=== PATIENT | male | born 1940 | race Caucasian/White ===

== ENCOUNTER 2017-07-06 21:01 | Inpatient (IN) ==
[2017-07-06 22:13] LABS: BUN/Creatinine Ratio 14 (6-26); Blood Urea Nitrogen 12 mg/dL (8-26); Calcium 9.2 mg/dL (8.6-10.8); Carbon Dioxide 24 mEq/L (19-29); Chloride 105 mEq/L (98-109); Glucose 120 mg/dL (70-99); Osmolality,Calculated 291 (280-300); Potassium 3.8 mEq/L (3.5-4.5); Sodium 140 mEq/L (136-145); eGFR For African Americans > 60 (> 60); eGFR For Non-African Americans > 60 (> 60)
--- NOTE | 2017-07-06 22:23 | Emergency Department Note ---
Disposition Clinical Impression: Hypertensive urgency CAD (coronary artery disease) Qualifiers: Coronary Disease-Associated Artery/Lesion type: unspecified vessel or lesion type [place] vs. transplanted heart: [place] heart Associated angina: with unspecified angina Qualified Code(s): I25.119 - Atherosclerotic heart disease of [place] coronary artery with unspecified angina pectoris Nausea and vomiting Qualifiers: Vomiting type: unspecified Vomiting Intractability: unspecified Qualified Code( s): R11.2 - Nausea with vomiting, unspecified Disposition: Admitted As Inpatient [facility]Primary Care Provider[facility] - Forms: ED Satisfaction Letter General Adult HPI - General Chief complaint: ED Nausea/Vomiting/Diarrhea Stated complaint: nausea/edema Time Seen by Provider: 07/06/17 21:03 Source: patient, EMS Mode of arrival: EMS Limitations: no limitations Nursing Notes Reviewed: Yes Vital Signs Reviewed: Yes - History of Present Illness HPI Narrative: Patient is a 77-year-old white male with a history of hypertension, coronary artery disease status post remote multivessel CABG, who presents to the ER as a transfer from the [facility] for hypertensive urgency, lower extremity edema, nausea and vomiting. Patient was seen here and admitted for a non-STEMI on June 20 and at that visit had a heart catheterization with decreased EF but no intervention was performed. It was recommended to optimize his medical management at that visit. At time of discharge he had his hydralazine dose decreased to 25 mg from 50 mg and he was discontinued off his diltiazem. He followed up with his [facility] nutrition tech on June 29 where they discontinued his nifedipine and started him on Norvasc. He also received a flu shot that day. Today patient states that last night he noticed bilateral lower extremity swelling that was new for him and was also having nausea and "just not feeling right. Patient has not eaten much in the last 24 hours due to the ongoing nausea. Patient states that at times he feels short of breath especially with exertion but currently denies any chest pain pressure or heaviness. On arrival patient had an episode of vomiting and states this is his second episode of vomiting today. He denies any fevers or chills, no abdominal pain or cramping of any kind. No urinary symptoms or flank pain. Patient also concerned about his blood pressure being elevated as he states he has been taking his medications as prescribed. Pain Scale: 0 - Related Data Home Medications Medication Instructions Recorded Confirmed Cholecalciferol (D-3) [Vitamin D] 1,000 unit PO DAILY 06/21/17 07/06/17 Cilostazol 50 mg PO BID 06/21/17 07/06/17 Gabapentin [Neurontin] 1,200 mg PO TID 06/21/17 07/06/17 LORazepam [Ativan] 0.5 mg PO BID PRN 06/21/17 07/06/17 Latanoprost [Xalatan] 1 drop RIGHT EYE HS 06/21/17 07/06/17 Lisinopril [Zestril] 40 mg PO HS 06/21/17 07/06/17 Terazosin [Hytrin] 1 mg PO HS 06/21/17 07/06/17 metFORMIN [Glucophage] 500 mg PO BID 06/21/17 07/06/17 Amlodipine Besylate 2.5 mg PO DAILY 07/06/17 07/06/17 Aspirin 243 mg PO DAILY 07/06/17 07/06/17 Isosorbide MONOnitrate [Isosorbide 120 mg PO DAILY 07/06/17 07/06/17 Mononitrate ER] Metoprolol Succinate 100 mg PO DAILY 07/06/17 07/06/17 hydrALAZINE [HydrALAZINE] 25 mg PO TID 07/06/17 07/06/17 Previous Rx's Medication Instructions Recorded Atorvastatin [Lipitor] 40 mg PO HS #30 tab 06/24/17 Allergies Allergy/AdvReac Type Severity Reaction Status Date / Time hydrochlorothiazide Allergy Rash Verified 06/20/17 15:37 tramadol AdvReac Hallucinati Verified 07/04/16 18:40 ng IVP dye AdvReac Rash Uncoded 07/04/16 18:40 All systems ED: reviewed and negative except as stated. Review of Systems: As Per HPI Past Medical History - Past Medical History Medical history: Reports: atrial fibrillation, coronary artery disease, diabetes , hyperlipidemia, hypertension, myocardial infarction, peripheral artery disease , renal disease, other Surgical history: Reports: coronary bypass (CABG), pacemaker/AICD Psychiatric history: Reports: panic disorder - Social History Smoking Status: Former smoker Smokeless Tobacco Status: No Alcohol use: Reports: none Drug use: Reports: none Physical Exam - General Limitations: no limitations General appearance: alert, in no apparent distress - Head Head exam: atraumatic, normocephalic, normal inspection - Eye Eye exam: Present: normal appearance, PERRL, EOMI. Absent: scleral icterus - ENT ENT exam: normal exam, normal oropharynx, mucous membranes dry - Neck Neck exam: Present: normal inspection. Absent: lymphadenopathy, thyromegaly - Chest Chest inspection: Present: normal inspection, symmetric chest wall rise. Absent : tenderness - Respiratory Respiratory exam: Present: normal lung sounds bilaterally. Absent: respiratory distress, wheezes - Cardiovascular Cardiovascular exam: Present: regular rate, normal rhythm, normal heart sounds - Abdominal Exam Abdominal exam: Present: soft, Non-Tender, normal bowel sounds. Absent: tenderness, distention, guarding, rebound - Extremities Exam Extremities exam: Present: pedal edema. Absent: tenderness, calf tenderness (1 + pitting edema bilaterally) - Back Exam Back exam: Present: normal inspection. Absent: CVA tenderness (R), CVA tenderness (L) - Neurological Exam Neurological exam: Present: alert, oriented X3, CN II-XII intact, reflexes normal. Absent: motor sensory deficit - Psychiatric Psychiatric exam: Present: normal affect, normal mood - Skin Skin exam: Present: warm, dry, intact, normal color. Absent: rash, diaphoresis Course Course Narrative: Patient was sent from the [facility] and plans were to admit him at the [facility] but they had no bed availability so patient was transferred to our facility. All of patient's labs from just a few hours ago R on his [facility] charts that were [facility] with him as well as his EKG and images of his chest x-ray. I have repeated some labs here for comparison but everything is within the [facility] chart. Patient continues to have elevated blood pressure but according to the records he did receive his nifedipine as well as [facility]. I will talk to the hospitalist and admit the patient for further evaluation and treatment. - Reevaluation(s) Reevaluation #1: Patient given labetalol IV for blood pressure. Discussed with hospitalist who accepted the patient for admission for further evaluation and management and requested that he be placed on telemetry bed at 10:50 PM. Time: 22:48 Vital Signs Temperature 98.8 F 07/06/17 21:04 Pulse Rate 89 07/06/17 21:04 Respiratory Rate 18 07/06/17 21:04 Blood Pressure 195/99 07/06/17 21:04 O2 Sat by Pulse Oximetry 96 07/06/17 21:04 Temperature 98.8 F 07/06/17 21:04 Pulse Rate 89 07/06/17 21:04 Respiratory Rate 18 07/06/17 21:04 Blood Pressure 195/99 07/06/17 21:04 O2 Sat by Pulse Oximetry 96 07/06/17 21:04 Oxygen Delivery Oxygen Delivery Room Air Medical Decision Making - Lab Data Result diagrams: 07/06/17 22:31 07/06/17 21:55 Lab Results 07/06/17 07/06/17 07/06/17 Range/Units 21:55 21:55 21:55 WBC (4.3-11.1) K/mcL RBC (4.19-5.50) M/mcL Hgb (12.9-16.9) g/dL Hct (37.5-50.1) % MCV (83.0-100.0) fL MCH (28.0-33.3) pg MCHC (31.6-35.5) g/dL RDW (11.5-14.5) % Plt Count (140-400) K/mcL MPV (9.4-12.4) fL Immature Gran % (0-4) % Seg Neutrophils % % Lymphocytes % % Monocytes % % Eosinophils % % Basophils % % Neutrophils # (1.6-8.9) K/mcL Lymphocytes # (0.6-4.6) K/mcL Monocytes # (0.0-1.3) K/mcL Eosinophils # (0.0-0.6) K/mcL Basophils # (0.0-0.2) K/mcL Immature Plt Fraction (1.1-6.1) % PT TNP INR TNP APTT TNP Sodium 140 (136-145) mEq/L Potassium 3.8 (3.5-4.5) mEq/L Chloride 105 (98-109) mEq/L Carbon Dioxide 24 (19-29) mEq/L BUN 12 (8-26) mg/dL Creatinine 0.86 (0.72-1.25) mg/dL Est GFR ( Amer) > 60 (> 60) Est GFR (Non-Af Amer) > 60 (> 60) BUN/Creatinine Ratio 14 (6-26) Glucose 120 H (70-99) mg/dL Calculated Osmolality 291 (280-300) Calcium 9.2 (8.6-10.8) mg/dL Troponin I 0.02 (0-0.03) ng/mL B-Natriuretic Peptide (0-100) pg/mL Specimen Rejected 07/06/17 07/06/17 07/06/17 Range/Units 21:55 21:55 22:31 WBC 7.6 (4.3-11.1) K/mcL RBC 3.61 L (4.19-5.50) M/mcL Hgb 11.0 L (12.9-16.9) g/dL Hct 32.8 L (37.5-50.1) % MCV 90.9 (83.0-100.0) fL MCH 30.5 (28.0-33.3) pg MCHC 33.5 (31.6-35.5) g/dL RDW 14.1 (11.5-14.5) % Plt Count 160 (140-400) K/mcL MPV 10.9 (9.4-12.4) fL Immature Gran % 0.3 (0-4) % Seg Neutrophils % 74.7 % Lymphocytes % 16.7 % Monocytes % 6.7 % Eosinophils % 1.2 % Basophils % 0.4 % Neutrophils # 5.7 (1.6-8.9) K/mcL Lymphocytes # 1.3 (0.6-4.6) K/mcL Monocytes # 0.5 (0.0-1.3) K/mcL Eosinophils # 0.1 (0.0-0.6) K/mcL Basophils # 0.0 (0.0-0.2) K/mcL Immature Plt Fraction 5.3 (1.1-6.1) % PT INR APTT Sodium (136-145) mEq/L Potassium (3.5-4.5) mEq/L Chloride (98-109) mEq/L Carbon Dioxide (19-29) mEq/L BUN (8-26) mg/dL Creatinine (0.72-1.25) mg/dL Est GFR ( Amer) (> 60) Est GFR (Non-Af Amer) (> 60) BUN/Creatinine Ratio (6-26) Glucose (70-99) mg/dL Calculated Osmolality (280-300) Calcium (8.6-10.8) mg/dL Troponin I (0-0.03) ng/mL B-Natriuretic Peptide 519 H (0-100) pg/mL Specimen Rejected Clotted 07/06/17 Range/Units 22:31 WBC (4.3-11.1) K/mcL RBC (4.19-5.50) M/mcL Hgb (12.9-16.9) g/dL Hct (37.5-50.1) % MCV (83.0-100.0) fL MCH (28.0-33.3) pg MCHC (31.6-35.5) g/dL RDW (11.5-14.5) % Plt Count (140-400) K/mcL MPV (9.4-12.4) fL Immature Gran % (0-4) % Seg Neutrophils % % Lymphocytes % % Monocytes % % Eosinophils % % Basophils % % Neutrophils # (1.6-8.9) K/mcL Lymphocytes # (0.6-4.6) K/mcL Monocytes # (0.0-1.3) K/mcL Eosinophils # (0.0-0.6) K/mcL Basophils # (0.0-0.2) K/mcL Immature Plt Fraction (1.1-6.1) % PT 11.7 INR 1.1 APTT 26.9 Sodium (136-145) mEq/L Potassium (3.5-4.5) mEq/L Chloride (98-109) mEq/L Carbon Dioxide (19-29) mEq/L BUN (8-26) mg/dL Creatinine (0.72-1.25) mg/dL Est GFR ( Amer) (> 60) Est GFR (Non-Af Amer) (> 60) BUN/Creatinine Ratio (6-26) Glucose (70-99) mg/dL Calculated Osmolality (280-300) Calcium (8.6-10.8) mg/dL Troponin I (0-0.03) ng/mL B-Natriuretic Peptide (0-100) pg/mL Specimen Rejected
[2017-07-06 22:38] LABS: Basophils % 0.4 %; Eosinophils # 0.1 K/mcL (0.0-0.6); Eosinophils % 1.2 %; Hematocrit 32.8 % (37.5-50.1); Immature Granulocytes % 0.3 % (0-4); Immature Platelets 5.3 % (1.1-6.1); Lymphocytes # 1.3 K/mcL (0.6-4.6); Lymphocytes % 16.7 %; Mean Corpuscular HGB Conc 33.5 g/dL (31.6-35.5); Mean Corpuscular Hemoglobin 30.5 pg (28.0-33.3); Mean Corpuscular Volume 90.9 fL (83.0-100.0); Mean Platelet Volume 10.9 fL (9.4-12.4); Monocytes # 0.5 K/mcL (0.0-1.3); Monocytes % 6.7 %; Neutrophils # 5.7 K/mcL (1.6-8.9); Platelet Count 160 K/mcL (140-400); Red Blood Count 3.61 M/mcL (4.19-5.50); Red Cell Distribution Width 14.1 % (11.5-14.5); Segmented Neutrophils % 74.7 %
[2017-07-06 22:42] LABS: INR 1.1; Prothrombin Time 11.7 Seconds (9.4-12.1)
[2017-07-06 22:45] LABS: Activated Partial Thrombo Time 26.9 Seconds (26.0-36.0)
[2017-07-06] MEDS ORDERED: *HR* Labetalol 100 MG/20 ML MDV IVP ONE (22:48)
[2017-07-07] MEDS ORDERED: *HR* LORazepam 0.5 MG TABLET PO PRN (01:05)
[2017-07-07] MEDS ORDERED: Naloxone 0.4 MG/ML INJ IVP PRN (01:06)
[2017-07-07] MEDS ORDERED: Ondansetron 4 MG/2 ML VIAL IVP PRN (01:10)
[2017-07-07] MEDS ORDERED: amLODIPine 5 MG TABLET PO ONE (01:10)
--- NOTE | 2017-07-07 02:07 | Internal Med History&Physical ---
Date of Encounter: 07/07/17 Time of Encounter: 02:05 Assessment and Plan (1) Nausea and vomiting Current visit: Yes Status: Acute Possibly side effect of medication Zofran q8h prn Resolved per patient Qualifiers: Vomiting type: unspecified Vomiting Intractability: unspecified Qualified Code(s): R11.2 - Nausea with vomiting, unspecified (2) Hypertensive urgency Current visit: Yes Status: Acute Improving with resumption of home medications (3) DMII (diabetes mellitus, type 2) Current visit: Yes Status: Chronic Continue insulin FSACHS ADA diet Qualifiers: Diabetes mellitus complication status: with unspecified complications Diabetes mellitus mcc insulin use: without mcc use Qualified Code( s): E11.8 - Type 2 diabetes mellitus with unspecified complications (4) CAD (coronary artery disease) Current visit: Yes Status: Chronic Stable angina, chronic, LHC done 06/2017 noted Continue home medications Qualifiers: Coronary Disease-Associated Artery/Lesion type: unspecified vessel or lesion type [place] vs. transplanted heart: [place] heart Associated angina: with stable angina Qualified Code(s): I25.118 - Atherosclerotic heart disease of [place] coronary artery with other forms of angina pectoris (5) PVD (peripheral vascular disease) Current visit: Yes Status: Chronic Continue home meds (6) Pacemaker Current visit: Yes Status: Chronic Device interrogation unremarkable 06/24/17 (7) DVT prophylaxis Current visit: Yes Status: Acute Heparin Internal Medicine - H&P: HPI Chief complaint: Nausea and Vomiting Admitted From: Hospital to Hospital Transfer Plans for Post Hospital Care: Home History of present illness: Mr. Rojas is a 77 year old male with PMH of Anxiety, CAD s/p stents, Stable angina s/p C 06/24/17 with Severe CAD and patent CABG 2/2, Pacemaker with recent interrogation normal), HTN, Glaucoma , PAD, CKD He presented as a referal from [facility] with complains of nausea and non-bilious non -bloody vomiting, no associated chest pain, shortness of breath, no palpitation , no abdominal pain, no fever or chills, he denies headaches or confusion Reports chronic leg swelling Other ROS is unremarkable Patient's presenting BP was 195-200/99-105. There is questionable compliance as patient's blood pressure responded to medications given in the ER. His CBC/Chem/Coag are WNL. Troponin is negative CXR from [facility] does not show pulmonary congestion or edema Past Med Surg Social Fam HX - Past Medical History Medical history: atrial fibrillation, coronary artery disease, diabetes, hyperlipidemia, hypertension, myocardial infarction, peripheral artery disease, renal disease, other Psychiatric history: panic disorder - Past Surgical History Surgical History: coronary bypass (CABG), pacemaker/AICD - Social History Smoking Status: Former smoker Smokeless Tobacco Status: No Alcohol use: none Drug use: none - Family History Mother Living Status: Hx Family Cardiac Disorders: Yes (ME, HTN) Hx Family Respiratory Disorders: No Hx Family Cancer: No Hx Family GI Disorders: No Hx Family Endocrine Disorder: Yes (DM) Hx Family Neuromuscular Disorders: No Hx Family Neurologic Disorders: No Hx Family HEENT Disorders: No Hx Family Autoimmune Disorders: No Internal Medicine - H&P: Meds Cholecalciferol (D-3) [Vitamin D] 1,000 unit PO DAILY 06/21/17 [History] Cilostazol 50 mg PO BID 06/21/17 [History] Gabapentin [Neurontin] 1,200 mg PO TID 06/21/17 [History] LORazepam [Ativan] 0.5 mg PO BID PRN 06/21/17 [History] Latanoprost [Xalatan] 1 drop RIGHT EYE HS 06/21/17 [History] Lisinopril [Zestril] 40 mg PO HS 06/21/17 [History] Terazosin [Hytrin] 1 mg PO HS 06/21/17 [History] metFORMIN [Glucophage] 500 mg PO BID 06/21/17 [History] Atorvastatin [Lipitor] 40 mg PO HS #30 tab 06/24/17 [Rx] Amlodipine Besylate 2.5 mg PO DAILY 07/06/17 [History] Aspirin 243 mg PO DAILY 07/06/17 [History] Isosorbide MONOnitrate [Isosorbide Mononitrate ER] 120 mg PO DAILY 07/06/17 [ History] Metoprolol Succinate 100 mg PO DAILY 07/06/17 [History] hydrALAZINE [HydrALAZINE] 25 mg PO TID 07/06/17 [History] 3 Allergy/AdvReac Type Severity Reaction Status Date / Time hydrochlorothiazide Allergy Rash Verified 06/20/17 15:37 tramadol AdvReac Hallucinati Verified 07/04/16 18:40 ng IVP dye AdvReac Rash Uncoded 07/04/16 18:40 All Systems PM: A 10-system review of systems was performed and is negative for pertinent findings except as documented above in the HPI. - Constitutional Constitutional: as per HPI - EENT Eyes: as per HPI Ears: as per HPI Nose, mouth and throat: as per HPI - Cardiovascular Cardiovascular ROS IM: as per HPI - Respiratory Respiratory: as per HPI - Gastrointestinal Gastrointestinal: as per HPI - Musculoskeletal Musculoskeletal ROS IM: as per HPI - Integumentary Integumentary IM: as per HPI - Neurological Neurological ROS: as per HPI - Hematologic/Lymphatic Hematologic/Lymphatic: as per HPI - Constitutional Vitals: Temp Pulse Resp BP Pulse Ox 98.8 F 83 16 187/92 98 07/06/17 21:04 07/07/17 00:37 07/07/17 00:37 07/07/17 00:37 07/07/17 00:37 General appearance: Present: A&O X 3, pleasant, no acute distress, answers questions appropriately - Head Head exam: Present: atraumatic, normocephalic - Eye Eye exam: Present: PERRL, conjuntiva pink, sclera anicteric Pupils: Present: PERRL - Neck Neck exam general surgery: Present: supple, trachea midline. Absent: lymphadenopathy - Respiratory Respiratory exam: Present: CTAB. Absent: accessory muscle use, rales, rhonchi, wheezes - Cardiovascular Cardiovascular exam: Present: RRR, +S1, +S2. Absent: diastolic murmur, gallop, rubs, systolic murmur - GI/Abdominal GI/Abdominal exam: Present: normal bowel sounds, soft, no peritoneal signs. Absent: distended, tenderness - Extremities Exam Extremities exam: Present: warm, radial pulses palpable and symmetrical. Absent : calf tenderness, cyanotic, pedal edema - Neurological Exam Neurological exam: Present: alert, CN II-XII intact, oriented X3, no focal deficits. Absent: pronater drift, facial droop, speech deficit - Skin Skin exam: Present: dry, intact Internal Med - H&P Results - Labs CBC & Chem 7: 07/06/17 22:31 07/06/17 21:55
[2017-07-07 03:14] LABS: Bilirubin,Urine Negative (Negative); Blood,Urine Negative (Negative); Clarity,Urine Clear (Clear); Color,Urine Yellow (Yellow); Glucose,Urine (UA) Normal (Normal); Ketones,Urine 15 mg/dL (Negative); Leukocyte Esterase,Urine Negative (Negative); Nitrite,Urine Negative (Negative); Protein,Urine 30 mg/dL (Neg-Trace); Specific Gravity,Urine 1.018 (1.010-1.025); Urobilinogen,Urine Normal (Normal)
[2017-07-07 03:15] LABS: Bacteria,Urine None Seen per hpf (None-Few); Hyaline Casts,Urine None Seen per lpf (None-Few); RBC,Urine 0-3 per hpf (0-3); Squamous Epithelial Cell,Urine Many per lpf (None-Few); WBC,Urine 0-3 per hpf (0-3)
[2017-07-07] MEDS: *HR* Heparin 5,000 UNIT/ML VIAL SQ SCH ×4 (05:17→20:53)
[2017-07-07 09:27] LABS: Basophils % 0.4 %; Eosinophils # 0.1 K/mcL (0.0-0.6); Eosinophils % 0.7 %; Hemoglobin 11.1 g/dL (12.9-16.9); Immature Granulocytes % 0.3 % (0-4); Lymphocytes # 1.6 K/mcL (0.6-4.6); Lymphocytes % 21.7 %; Mean Corpuscular HGB Conc 32.6 g/dL (31.6-35.5); Mean Corpuscular Hemoglobin 29.6 pg (28.0-33.3); Mean Corpuscular Volume 90.7 fL (83.0-100.0); Mean Platelet Volume 11.2 fL (9.4-12.4); Monocytes # 0.5 K/mcL (0.0-1.3); Monocytes % 7.1 %; Platelet Count 166 K/mcL (140-400); Red Blood Count 3.75 M/mcL (4.19-5.50); Segmented Neutrophils % 69.8 %
[2017-07-07] MEDS: hydrALAZINE 25 MG TABLET PO SCH ×3 (11:29→20:26)
[2017-07-07] MEDS: amLODIPine 5 MG TABLET PO SCH (11:29)
[2017-07-07] MEDS: Gabapentin 400 MG CAPSULE PO SCH ×3 (11:29→20:26)
[2017-07-07] MEDS: Isosorbide MONOnitrate (24 HR) 60 MG TAB.ER.24H PO SCH (11:50)
[2017-07-07] MEDS: Cholecalciferol (D-3) 1,000 UNIT TABLET PO SCH (11:50)
[2017-07-07] MEDS: Aspirin 81 MG TAB.CHEW PO SCH (12:04)
[2017-07-07] MEDS: Metoprolol XL (24 HR) Succ 50 MG TAB.ER.24H PO SCH (12:56)
--- NOTE | 2017-07-07 16:17 | Event Note ---
<Varinder Harrison - Last Filed: 07/07/17 16:17> Date of Encounter: 07/07/17 Time of Encounter: 16:00 69-year-old male presents with chief complaint of nausea and vomiting and lower extremity swelling. States his symptoms started over the weekend. States his vomiting was nonbilious, nonbloody. Denies chest pain, shortness of breath, palpitations, abdominal pain, diarrhea fever, chills. Patient was found to have blood pressure 200/100. Patient states he is compliant with his blood pressure medications. Initial laboratory workup was negative. Troponin was 0.02 and 0.05 respectively. During my evaluation patient denies any complaints and states nausea and vomiting is resolved. His home blood pressure medications have been restarted on his blood pressure currently is 165/78. Past medical history includes history of coronary artery disease, CABG, peripheral artery disease General: Pleasant without distress HEENT: Head atraumatic, normocephalic, EOMI, PERRLA, neck nontender to palpation , absent lymphadenopathy, Moist Mucous Membranes, Heart: Regular rate and rhythm with no murmur Lungs: Clear to auscultation bilaterally Abdomen: Soft nontender, nondistended positive bowel sounds Skin: warm and dry Extremities: Absent pedal edema, Neuro: UE and LE sensation equal bilaterally, UE and LEstrength 5/5, alert oriented 3, Vascular: Pedal and radial pulses 2 out of 4 A/P: Nausea/vomiting: Resolved continue Zofran. Start cardiac, diabetic diet. Hypertensive urgency: Patient's systolic blood pressure improved by 40 points to 160/80 with resumption of home medications. Continue to monitor. Diabetes mellitus: Continue insulin and ADA diet. Coronary artery disease: Patient has history of severe coronary artery disease left heart catheterization 06/2017 and cardiology recommended medical management. Patient is chest pain-free. Second troponin elevated 0.05 likely secondary to demand ischemia from hypertension. If troponin continues to trend up and will consult cardiology. We will obtain an EKG. Continue aspirin, statin, Imdur. Ischemic cardiomyopathy: Patient has a left ventricular ejection fraction 30%. He has a pacemaker which was interrogated 06/24/17 <Dheeraj Rodriguez - Last Filed: 07/07/17 18:50> Date of Encounter: 07/07/17 Pt was admitted earlier this AM for nausea and uncontrolled HTN. At this time he is feeling OK but his BP has been up and down. Continue plan as above.
--- NOTE | 2017-07-07 19:23 | Electrocardiograph Report ---
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
[2017-07-07] MEDS ORDERED: Latanoprost 2.5 ML BOTTLE RIGHT EYE SCH (21:00)
[2017-07-07] MEDS ORDERED: Lisinopril 20 MG TABLET PO SCH (21:00)
[2017-07-08] MEDS: *HR* Heparin 5,000 UNIT/ML VIAL SQ SCH (05:30)
[2017-07-08 07:03] VITALS: BP 153/67
--- NOTE | 2017-07-08 09:04 | Discharge Summary ---
<Varinder Harrison - Last Filed: 07/08/17 09:10> Date of Encounter: 07/08/17 Time of Encounter: 09:01 - Discharge Diagnosis (1) Hypertensive urgency Priority: Primary Status: Acute (2) CAD (coronary artery disease) Priority: Secondary Status: Chronic Qualifiers: Coronary Disease-Associated Artery/Lesion type: unspecified vessel or lesion type [place] vs. transplanted heart: [place] heart Associated angina: with stable angina Qualified Code(s): I25.118 - Atherosclerotic heart disease of [place] coronary artery with other forms of angina pectoris (3) DMII (diabetes mellitus, type 2) Priority: Secondary Status: Chronic Qualifiers: Diabetes mellitus complication status: with unspecified complications Diabetes mellitus termite control servicer insulin use: without prison use Qualified Code( s): E11.8 - Type 2 diabetes mellitus with unspecified complications (4) DVT prophylaxis Priority: Secondary Status: Acute (5) Nausea and vomiting Priority: Secondary Status: Acute Qualifiers: Vomiting type: unspecified Vomiting Intractability: unspecified Qualified Code(s): R11.2 - Nausea with vomiting, unspecified (6) Pacemaker Priority: Secondary Status: Chronic (7) PVD (peripheral vascular disease) Priority: Secondary Status: Chronic - Discharge Medications Home Medications: Cholecalciferol (D-3) [Vitamin D] 1,000 unit PO DAILY 06/21/17 [History] Cilostazol 50 mg PO BID 06/21/17 [History] Gabapentin [Neurontin] 1,200 mg PO TID 06/21/17 [History] LORazepam [Ativan] 0.5 mg PO BID PRN 06/21/17 [History] Latanoprost [Xalatan] 1 drop RIGHT EYE HS 06/21/17 [History] Lisinopril [Zestril] 40 mg PO HS 06/21/17 [History] Terazosin [Hytrin] 1 mg PO HS 06/21/17 [History] metFORMIN [Glucophage] 500 mg PO BID 06/21/17 [History] Atorvastatin [Lipitor] 40 mg PO HS #30 tab 06/24/17 [Rx] Amlodipine Besylate 2.5 mg PO DAILY 07/06/17 [History] Aspirin 243 mg PO DAILY 07/06/17 [History] Isosorbide MONOnitrate [Isosorbide Mononitrate ER] 120 mg PO DAILY 07/06/17 [ History] Metoprolol Succinate 100 mg PO DAILY 07/06/17 [History] hydrALAZINE [HydrALAZINE] 25 mg PO TID 07/06/17 [History] Allergies/Adverse Reactions: 3 Allergy/AdvReac Type Severity Reaction Status Date / Time hydrochlorothiazide Allergy Rash Verified 06/20/17 15:37 tramadol AdvReac Hallucinati Verified 07/04/16 18:40 ng IVP dye AdvReac Rash Uncoded 07/04/16 18:40 Date of admission: 07/06/17 23:15 [facility] Discharging clinician: Varinder Harrison Anticipated date of discharge: 07/08/17 - Patient Status Disposition: Home Health Service Condition: Good Functional capacity at discharge: independent ambulation Overall status at discharge: patient is back to baseline - Discharge Instructions [facility] With: [facility] [Primary Care Provider] - Additional Instructions: Follow up with [facility]. - Diet and Activity Activity: increase activity as tolerated Diet: diabetic diet, low fat, low cholesterol, low salt diet Hospital course: Mr. Rojas is a 77 year old male presented from [facility] with chief complaint nausea vomiting and lower extremity edema. Patient stated that his symptoms started over the weekend. His vomiting was nonbloody, non-bilious. At the point of presentation he did not have chest pain, shortness of breath, palpitations, abdominal pain, diarrhea, fever, chills. He was found to have a blood pressure of 200/100 systolic. There is a question of if patient was taking his medications properly. Patient had a troponin elevation of 0.05. Patient was started on his home medications and his blood pressure responded appropriately and resolved as hypertensive urgency. EKG showed sinus rhythm with first-degree AV block without ischemic changes. Patient's troponin elevation was secondary to demand ischemia. He did not have any chest pain during his stay. As his blood pressure normalized patient's symptoms of nausea , vomiting improved. He was able to tolerate cardiac diabetic diet. He is able to ambulate on his own without assistance. Patient will be discharged home. plan: We will obtain home health aide to help patient take his blood pressure medication properly. Follow-up with [facility] cardiology this month with his scheduled appointment. Follow-up with PCP. - Time Spent with Patient Total time spent providing and/or coordinating discharge services: - Constitutional Vitals: Temp Pulse Resp BP Pulse Ox 98.1 F 74 16 153/67 97 07/08/17 07:02 07/08/17 07:02 07/08/17 07:02 07/08/17 07:02 07/08/17 07:02 General appearance: Present: A&O X 3, pleasant, no acute distress, answers questions appropriately - Other Additional findings: General: Pleasant without distress HEENT: Head atraumatic, normocephalic, EOMI, PERRL, neck nontender to palpation , absent lymphadenopathy, Moist Mucous Membranes, Heart: Regular rate and rhythm with no murmur Lungs: Clear to auscultation bilaterally Abdomen: Soft nontender, nondistended positive bowel sounds Skin: warm and dry Extremities: Absent pedal edema, Neuro: UE and LEstrength 5/5, alert oriented 3 Vascular: Pedal and radial pulses 2 out of 4 <Dheeraj Rodriguez - Last Filed: 07/08/17 09:52> Date of Encounter: 07/08/17 - Discharge Diagnosis (1) Hypertensive urgency Status: Acute (2) DMII (diabetes mellitus, type 2) Status: Chronic Qualifiers: Diabetes mellitus complication status: with hyperglycemia Diabetes mellitus prison insulin use: without termite control servicer use Qualified Code(s): E11.65 - Type 2 diabetes mellitus with hyperglycemia (3) CAD (coronary artery disease) Status: Chronic Qualifiers: Coronary Disease-Associated Artery/Lesion type: unspecified vessel or lesion type [place] vs. transplanted heart: [place] heart Associated angina: with stable angina Qualified Code(s): I25.118 - Atherosclerotic heart disease of [place] coronary artery with other forms of angina pectoris (4) Nausea and vomiting Status: Resolved Qualifiers: Vomiting type: unspecified Vomiting Intractability: non-intractable Qualified Code(s): R11.2 - Nausea with vomiting, unspecified (5) PVD (peripheral vascular disease) Status: Chronic Date of admission: 07/06/17 23:15 [facility] care physician: [facility] Consults: 07/08/17 09:17 Consult to Relay Associate [CONS] Routine Reason for SW Consult: wants home health aid for medication help 07/08/17 09:44 consult to credit investigator [Consult to Nutrition] [CONS] Routine Comment: Consulting Provider: NUTRITION Reason for Dietary Consult: Diet Education Other:: going home today. Salt education/foods. Hospital course: Mr. Rojas is a 77 year old male - Time Spent with Patient Total time spent providing and/or coordinating discharge services: 38min - Constitutional Vitals: Temp Pulse Resp BP Pulse Ox 98.1 F 74 16 153/67 97 07/08/17 07:02 07/08/17 07:02 07/08/17 07:02 07/08/17 07:02 07/08/17 07:02 - Attending Attestation I examined this patient and my medical decision-making was reviewed with the Resident Physician on 07/08/17. I agree with the documented findings, disposition and treatment plan as described except to the extent set forth below. Mr. Rojas has been admitted for hypertensive urgency, abd pain with nausea and vomiting. He is currently improved with BP controlled. He is tolerating a diet and he is afebrile. He is ready for discharge home. Exam Alert. Comfortable Mucus membranes dry Heart reg No wheeze Abd soft and nontender Trace edema Plan Diet education D/C home today ? if component of gastroparesis here.
--- NOTE | 2017-07-08 09:12 | Physician Discharge Referral ---
Home Health/Hosp Referral Info Transfer to: Home Health Attending Provider: Dr. Esqueda Provider in Charge Post Discharge: PCP - Diagnosis (1) Hypertensive urgency Priority: Primary Status: Acute (2) CAD (coronary artery disease) Priority: Secondary Status: Chronic (3) DMII (diabetes mellitus, type 2) Priority: Secondary Status: Chronic (4) DVT prophylaxis Priority: Secondary Status: Acute (5) Nausea and vomiting Priority: Secondary Status: Acute (6) Pacemaker Priority: Secondary Status: Chronic (7) PVD (peripheral vascular disease) Priority: Secondary Status: Chronic - Respiratory Orders None Smoking Cessation: Smoking cessation has been advised. For more information, call the [place] Tobacco Quit Line at 8-554-PWEW-NOW. - Diet/Nutrition Diet/Nutrition Orders: Cardiac (ada) - Activity Activity Orders: Ambulate - Services Needed Following services are medically necessary services: Home Health Aide (for helping with medications) - Transfer Medications Home Medications: Cholecalciferol (D-3) [Vitamin D] 1,000 unit PO DAILY 06/21/17 [History] Cilostazol 50 mg PO BID 06/21/17 [History] Gabapentin [Neurontin] 1,200 mg PO TID 06/21/17 [History] LORazepam [Ativan] 0.5 mg PO BID PRN 06/21/17 [History] Latanoprost [Xalatan] 1 drop RIGHT EYE HS 06/21/17 [History] Lisinopril [Zestril] 40 mg PO HS 06/21/17 [History] Terazosin [Hytrin] 1 mg PO HS 06/21/17 [History] metFORMIN [Glucophage] 500 mg PO BID 06/21/17 [History] Atorvastatin [Lipitor] 40 mg PO HS #30 tab 06/24/17 [Rx] Amlodipine Besylate 2.5 mg PO DAILY 07/06/17 [History] Aspirin 243 mg PO DAILY 07/06/17 [History] Isosorbide MONOnitrate [Isosorbide Mononitrate ER] 120 mg PO DAILY 07/06/17 [ History] Metoprolol Succinate 100 mg PO DAILY 07/06/17 [History] hydrALAZINE [HydrALAZINE] 25 mg PO TID 07/06/17 [History] Allergies/Adverse Reactions: 3 Allergy/AdvReac Type Severity Reaction Status Date / Time hydrochlorothiazide Allergy Rash Verified 06/20/17 15:37 tramadol AdvReac Hallucinati Verified 07/04/16 18:40 ng IVP dye AdvReac Rash Uncoded 07/04/16 18:40 Certification: Further, I certify that my clinical findings support that this patient is homebound (i.e. absences from home require considerable and taxing effort and are for medical reasons or jehovah's witness services or infrequently or short duration when for other reasons) because: Homebound Reason: Patient requires assistance of a person or device to safely leave home Attestation: My signature below is to certify that this patient is under my care and that I, or nurse practitioner, or a physician's registrar assistant working with me, has a face-to -face encounter with this patient.
[2017-07-08] MEDS: Aspirin 81 MG TAB.CHEW PO SCH (09:56)
[2017-07-08] MEDS: amLODIPine 5 MG TABLET PO SCH (09:57)
[2017-07-08] MEDS: Cholecalciferol (D-3) 1,000 UNIT TABLET PO SCH (09:57)
[2017-07-08] MEDS: Metoprolol XL (24 HR) Succ 50 MG TAB.ER.24H PO SCH (09:57)
[2017-07-08] MEDS: Gabapentin 400 MG CAPSULE PO SCH (09:57)
[2017-07-08] MEDS: Isosorbide MONOnitrate (24 HR) 60 MG TAB.ER.24H PO SCH (09:57)
[2017-07-08] MEDS: hydrALAZINE 25 MG TABLET PO SCH (09:57)
== END 2017-07-08 12:08 | disposition home health service (06) | DRG 305 ==
LOC: EMEROO 21:01 → 2NENU 21:01 → SUATTDRO 23:15 → OBSVTOIN 23:15 → 2NENU 07-07 00:05 → 3BNU 07-07 11:12
PROVIDERS: ADMIT Internal Medicine; ATTEND Internal Medicine

== ENCOUNTER 2020-11-08 19:52 | Inpatient (IN) ==
[2020-11-08 21:28] LABS: Basophils # 0.1 K/mcL (0.0-0.2); Eosinophils # 0.2 K/mcL (0.0-0.6); Eosinophils % 3.4 %; Hematocrit 31.4 % (37.5-50.1); Hemoglobin 9.5 g/dL (12.9-16.9); Immature Granulocytes % 0.2 % (0-4); Lymphocytes # 1.7 K/mcL (0.6-4.6); Lymphocytes % 28.2 %; Mean Corpuscular HGB Conc 30.3 g/dL (31.6-35.5); Mean Corpuscular Hemoglobin 27.1 pg (28.0-33.3); Mean Corpuscular Volume 89.7 fL (83.0-100.0); Mean Platelet Volume 12.3 fL (9.4-12.4); Monocytes # 0.6 K/mcL (0.0-1.3); Monocytes % 9.9 %; Neutrophils # 3.4 K/mcL (1.6-8.9); Platelet Count 172 K/mcL (140-400); Red Cell Distribution Width 16.6 % (11.5-14.5); Segmented Neutrophils % 57.3 %; White Blood Count 5.9 K/mcL (4.3-11.1)
[2020-11-08 21:46] LABS: BUN/Creatinine Ratio 19 (6-26); Blood Urea Nitrogen 19 mg/dL (8-23); Calcium 9.1 mg/dL (8.6-10.3); Carbon Dioxide 23 mEq/L (23-29); Chloride 107 mEq/L (98-107); Glucose 122 mg/dL (70-105); Osmolality,Calculated 296 (280-300); Potassium 4.1 mEq/L (3.5-5.1); Sodium 141 mEq/L (136-145); eGFR For African Americans > 60 (> 60); eGFR For Non-African Americans > 60 (> 60)
[2020-11-08] MEDS ORDERED: Furosemide 40 MG/4 ML VIAL IVP ONE (22:44)
[2020-11-08] MEDS ORDERED: Dextrose Gel 15 GM/37.5 ML TUBE PO PRN ×2 (23:15)
[2020-11-08] MEDS ORDERED: Ondansetron 4 MG/2 ML VIAL IVP PRN (23:15)
[2020-11-08] MEDS ORDERED: D5% in Water 1,000 ML IVC PRN (23:15)
[2020-11-08] MEDS ORDERED: Acetaminophen 325 MG TABLET PO PRN (23:15)
[2020-11-08] MEDS ORDERED: Naloxone 0.4 MG/ML INJ IVP PRN (23:15)
[2020-11-08] MEDS ORDERED: *HR* Dextrose 50 % in Water (Vial) 50 ML VIAL IVP PRN (23:15)
[2020-11-08] MEDS ORDERED: Perflutren Lipid Microsphere 1.3 ML in 0.9 % Sodium Chloride 8.7 ML IVP PRN (23:20)
[2020-11-09 05:22] LABS: Basophils # 0.1 K/mcL (0.0-0.2); Basophils % 0.8 %; Eosinophils # 0.2 K/mcL (0.0-0.6); Eosinophils % 2.6 %; Hematocrit 30.7 % (37.5-50.1); Hemoglobin 9.4 g/dL (12.9-16.9); Immature Granulocytes % 0.3 % (0-4); Lymphocytes # 1.5 K/mcL (0.6-4.6); Lymphocytes % 24.4 %; Mean Corpuscular HGB Conc 30.6 g/dL (31.6-35.5); Mean Corpuscular Hemoglobin 26.3 pg (28.0-33.3); Mean Platelet Volume 12.6 fL (9.4-12.4); Monocytes # 0.6 K/mcL (0.0-1.3); Monocytes % 10.5 %; Neutrophils # 3.8 K/mcL (1.6-8.9); Platelet Count 176 K/mcL (140-400); Red Blood Count 3.57 M/mcL (4.19-5.50); Red Cell Distribution Width 16.4 % (11.5-14.5); Segmented Neutrophils % 61.4 %; White Blood Count 6.1 K/mcL (4.3-11.1)
[2020-11-09 05:46] LABS: BUN/Creatinine Ratio 18 (6-26); Blood Urea Nitrogen 18 mg/dL (8-23); Calcium 9.1 mg/dL (8.6-10.3); Carbon Dioxide 24 mEq/L (23-29); Chloride 106 mEq/L (98-107); Chol/HDL Ratio 2.7 (0-4.9); Cholesterol 92 mg/dL (< 200); Glucose 103 mg/dL (70-105); HDL Cholesterol 34 mg/dL (40-59); LDL Cholesterol,Calculated 44 mg/dL (< 100); Magnesium 1.7 mg/dL (1.6-2.6); Osmolality,Calculated 294 (280-300); Potassium 3.8 mEq/L (3.5-5.1); Sodium 141 mEq/L (136-145); Triglycerides 70 mg/dL (< 150); Troponin I 0.04 ng/mL (< 0.04); eGFR For African Americans > 60 (> 60); eGFR For Non-African Americans > 60 (> 60)
[2020-11-09] MEDS: Insulin LISPRO 300 UNITS/3 ML VIAL SUBQ SCH ×3 (08:12→16:19)
[2020-11-09] MEDS: Furosemide 40 MG/4 ML VIAL IVP SCH (08:20)
[2020-11-09 10:28] LABS: Estimated Average Glucose 151 mg/dl; Hemoglobin A1C 6.9 %
[2020-11-09] MEDS ORDERED: *HR* LORazepam 0.5 MG TABLET PO PRN (16:00)
[2020-11-09] MEDS: hydrALAZINE 25 MG TABLET PO SCH ×2 (17:12→20:39)
[2020-11-09] MEDS: Spironolactone 25 MG TABLET PO SCH (17:12)
[2020-11-09] MEDS: Apixaban 5 MG TABLET PO SCH (20:39)
[2020-11-09] MEDS: lisinopriL 20 MG TABLET PO SCH (20:40)
[2020-11-09] MEDS: Pregabalin 75 MG CAPSULE PO SCH (20:40)
[2020-11-09] MEDS ORDERED: hydrALAZINE 25 MG TABLET PO SCH (21:00)
[2020-11-10 03:57] LABS: Basophils % 0.5 %; Eosinophils # 0.1 K/mcL (0.0-0.6); Eosinophils % 2.2 %; Hematocrit 29.3 % (37.5-50.1); Hemoglobin 9.1 g/dL (12.9-16.9); Immature Granulocytes % 0.4 % (0-4); Lymphocytes # 1.5 K/mcL (0.6-4.6); Lymphocytes % 28.2 %; Mean Corpuscular HGB Conc 31.1 g/dL (31.6-35.5); Mean Corpuscular Hemoglobin 26.4 pg (28.0-33.3); Mean Corpuscular Volume 84.9 fL (83.0-100.0); Mean Platelet Volume 12.1 fL (9.4-12.4); Monocytes # 0.6 K/mcL (0.0-1.3); Monocytes % 10.4 %; Neutrophils # 3.2 K/mcL (1.6-8.9); Platelet Count 152 K/mcL (140-400); Red Blood Count 3.45 M/mcL (4.19-5.50); Red Cell Distribution Width 16.3 % (11.5-14.5); Segmented Neutrophils % 58.3 %; White Blood Count 5.5 K/mcL (4.3-11.1)
[2020-11-10 04:15] LABS: BUN/Creatinine Ratio 16 (6-26); Blood Urea Nitrogen 15 mg/dL (8-23); Calcium 8.8 mg/dL (8.6-10.3); Carbon Dioxide 28 mEq/L (23-29); Chloride 104 mEq/L (98-107); Glucose 93 mg/dL (70-105); Osmolality,Calculated 293 (280-300); Potassium 3.3 mEq/L (3.5-5.1); Sodium 141 mEq/L (136-145); eGFR For African Americans > 60 (> 60); eGFR For Non-African Americans > 60 (> 60)
[2020-11-10] MEDS: Insulin LISPRO 300 UNITS/3 ML VIAL SUBQ SCH ×3 (07:19→17:38)
[2020-11-10] MEDS: Spironolactone 25 MG TABLET PO SCH (07:53)
[2020-11-10] MEDS: Aspirin 81 MG TAB.CHEW PO SCH (07:53)
[2020-11-10] MEDS: Isosorbide MONOnitrate (24 HR) 60 MG TAB.ER.24H PO SCH (07:53)
[2020-11-10] MEDS: Apixaban 5 MG TABLET PO SCH (07:53)
[2020-11-10] MEDS: hydrALAZINE 25 MG TABLET PO SCH ×3 (07:53→19:48)
[2020-11-10] MEDS: Furosemide 40 MG/4 ML VIAL IVP SCH (07:53)
[2020-11-10] MEDS: Metoprolol XL (24 HR) Succ 50 MG TAB.ER.24H PO SCH (07:53)
[2020-11-10] MEDS: Pregabalin 75 MG CAPSULE PO SCH ×2 (07:53→19:48)
[2020-11-10 08:25] LABS: Magnesium 1.8 mg/dL (1.6-2.6)
[2020-11-10] MEDS ORDERED: *HR* Heparin 5,000 UNIT/ML VIAL IVP ONE (10:10)
[2020-11-10] MEDS ORDERED: *HR* Heparin 5,000 UNIT/ML VIAL IVP PRN ×3 (10:10→10:51)
[2020-11-10] MEDS ORDERED: Heparin 25,000UNIT/250ML 1/2NS 25,000 UNIT/250 ML IV.SOLN IVC SCH (10:15)
[2020-11-10 10:44] LABS: Hematocrit 30.8 % (37.5-50.1); Hemoglobin 9.8 g/dL (12.9-16.9); Mean Corpuscular HGB Conc 31.8 g/dL (31.6-35.5); Mean Corpuscular Hemoglobin 27.1 pg (28.0-33.3); Mean Corpuscular Volume 85.3 fL (83.0-100.0); Platelet Count 170 K/mcL (140-400); Red Blood Count 3.61 M/mcL (4.19-5.50); Red Cell Distribution Width 16.2 % (11.5-14.5); White Blood Count 7.2 K/mcL (4.3-11.1)
[2020-11-10 10:46] LABS: Prothrombin Time 22.8 Seconds (9.4-12.1)
[2020-11-10 11:02] LABS: Heparin anti-factor XA UFH 1.92 IU/mL (0.30-0.70)
[2020-11-10 11:06] LABS: Activated Partial Thrombo Time 31.7 Seconds (26.0-36.0)
[2020-11-10] MEDS: Heparin 25,000UNIT/250ML 1/2NS 25,000 UNIT/250 ML IV.SOLN IVC SCH (11:25)
[2020-11-10] MEDS: lisinopriL 20 MG TABLET PO SCH (19:48)
[2020-11-11 00:46] LABS: Basophils # 0.1 K/mcL (0.0-0.2); Basophils % 0.8 %; Eosinophils # 0.3 K/mcL (0.0-0.6); Eosinophils % 3.5 %; Hematocrit 30.9 % (37.5-50.1); Hemoglobin 9.8 g/dL (12.9-16.9); Immature Granulocytes % 0.3 % (0-4); Lymphocytes # 1.9 K/mcL (0.6-4.6); Lymphocytes % 27.3 %; Mean Corpuscular HGB Conc 31.7 g/dL (31.6-35.5); Mean Corpuscular Hemoglobin 27.5 pg (28.0-33.3); Mean Corpuscular Volume 86.6 fL (83.0-100.0); Monocytes # 0.8 K/mcL (0.0-1.3); Monocytes % 11.2 %; Platelet Count 172 K/mcL (140-400); Red Blood Count 3.57 M/mcL (4.19-5.50); Red Cell Distribution Width 16.2 % (11.5-14.5); Segmented Neutrophils % 56.9 %; White Blood Count 7.1 K/mcL (4.3-11.1)
[2020-11-11] MEDS: *HR* Heparin 5,000 UNIT/ML VIAL IVP PRN ×2 (00:58→17:11)
[2020-11-11 01:04] LABS: BUN/Creatinine Ratio 21 (6-26); Blood Urea Nitrogen 26 mg/dL (8-23); Calcium 8.9 mg/dL (8.6-10.3); Carbon Dioxide 26 mEq/L (23-29); Chloride 103 mEq/L (98-107); Glucose 128 mg/dL (70-105); Osmolality,Calculated 292 (280-300); Potassium 4.1 mEq/L (3.5-5.1); Sodium 138 mEq/L (136-145); eGFR For African Americans > 60 (> 60); eGFR For Non-African Americans 55 (> 60)
[2020-11-11] MEDS: Insulin LISPRO 300 UNITS/3 ML VIAL SUBQ SCH ×3 (08:31→17:04)
[2020-11-11] MEDS: Aspirin 81 MG TAB.CHEW PO SCH (08:49)
[2020-11-11] MEDS: Pregabalin 75 MG CAPSULE PO SCH ×2 (08:49→20:42)
[2020-11-11] MEDS: Furosemide 40 MG/4 ML VIAL IVP SCH (08:49)
[2020-11-11] MEDS: Isosorbide MONOnitrate (24 HR) 60 MG TAB.ER.24H PO SCH (08:50)
[2020-11-11] MEDS: hydrALAZINE 25 MG TABLET PO SCH ×3 (08:50→20:42)
[2020-11-11] MEDS: Metoprolol XL (24 HR) Succ 50 MG TAB.ER.24H PO SCH (08:50)
[2020-11-11] MEDS: Spironolactone 25 MG TABLET PO SCH (08:50)
[2020-11-11] MEDS: Heparin 25,000UNIT/250ML 1/2NS 25,000 UNIT/250 ML IV.SOLN IVC SCH (13:13)
[2020-11-11] MEDS: lisinopriL 20 MG TABLET PO SCH (20:42)
[2020-11-12] MEDS: *HR* Heparin 5,000 UNIT/ML VIAL IVP PRN ×2 (00:03→14:34)
[2020-11-12 06:50] LABS: Basophils # 0.1 K/mcL (0.0-0.2); Basophils % 0.7 %; Eosinophils # 0.3 K/mcL (0.0-0.6); Eosinophils % 3.3 %; Hematocrit 33.3 % (37.5-50.1); Hemoglobin 10.4 g/dL (12.9-16.9); Immature Granulocytes % 0.2 % (0-4); Lymphocytes # 2.4 K/mcL (0.6-4.6); Lymphocytes % 29.7 %; Mean Corpuscular HGB Conc 31.2 g/dL (31.6-35.5); Mean Corpuscular Hemoglobin 26.7 pg (28.0-33.3); Mean Corpuscular Volume 85.4 fL (83.0-100.0); Mean Platelet Volume 12.9 fL (9.4-12.4); Monocytes # 0.9 K/mcL (0.0-1.3); Monocytes % 11.5 %; Neutrophils # 4.4 K/mcL (1.6-8.9); Platelet Count 198 K/mcL (140-400); Red Cell Distribution Width 16.4 % (11.5-14.5); Segmented Neutrophils % 54.6 %; White Blood Count 8.1 K/mcL (4.3-11.1)
[2020-11-12 07:10] LABS: BUN/Creatinine Ratio 21 (6-26); Blood Urea Nitrogen 23 mg/dL (8-23); Calcium 9.2 mg/dL (8.6-10.3); Carbon Dioxide 26 mEq/L (23-29); Chloride 104 mEq/L (98-107); Glucose 120 mg/dL (70-105); Osmolality,Calculated 297 (280-300); Potassium 3.7 mEq/L (3.5-5.1); Sodium 141 mEq/L (136-145); eGFR For African Americans > 60 (> 60); eGFR For Non-African Americans > 60 (> 60)
[2020-11-12] MEDS: Insulin LISPRO 300 UNITS/3 ML VIAL SUBQ SCH ×3 (07:30→17:10)
[2020-11-12] MEDS: Aspirin 81 MG TAB.CHEW PO SCH (07:42)
[2020-11-12] MEDS: Spironolactone 25 MG TABLET PO SCH (07:42)
[2020-11-12] MEDS: Metoprolol XL (24 HR) Succ 50 MG TAB.ER.24H PO SCH (07:42)
[2020-11-12] MEDS: Pregabalin 75 MG CAPSULE PO SCH ×2 (07:43→20:17)
[2020-11-12] MEDS: Furosemide 40 MG/4 ML VIAL IVP SCH (07:43)
[2020-11-12] MEDS: Isosorbide MONOnitrate (24 HR) 60 MG TAB.ER.24H PO SCH (07:43)
[2020-11-12] MEDS: hydrALAZINE 25 MG TABLET PO SCH ×3 (07:43→20:17)
[2020-11-12] MEDS: Heparin 25,000UNIT/250ML 1/2NS 25,000 UNIT/250 ML IV.SOLN IVC SCH ×2 (17:08→17:09)
[2020-11-12] MEDS: predniSONE 20 MG TABLET PO SCH (17:09)
[2020-11-12] MEDS: lisinopriL 20 MG TABLET PO SCH (20:17)
[2020-11-13 03:44] LABS: Hemoglobin 9.3 g/dL (12.9-16.9); Mean Corpuscular Hemoglobin 26.8 pg (28.0-33.3); Mean Corpuscular Volume 86.5 fL (83.0-100.0); Mean Platelet Volume 12.4 fL (9.4-12.4); Platelet Count 165 K/mcL (140-400); Red Blood Count 3.47 M/mcL (4.19-5.50); Red Cell Distribution Width 16.3 % (11.5-14.5); White Blood Count 3.5 K/mcL (4.3-11.1)
[2020-11-13 04:08] LABS: BUN/Creatinine Ratio 33 (6-26); Blood Urea Nitrogen 32 mg/dL (8-23); Calcium 8.8 mg/dL (8.6-10.3); Carbon Dioxide 26 mEq/L (23-29); Chloride 104 mEq/L (98-107); Glucose 213 mg/dL (70-105); Osmolality,Calculated 299 (280-300); Potassium 4.4 mEq/L (3.5-5.1); Sodium 138 mEq/L (136-145); eGFR For African Americans > 60 (> 60); eGFR For Non-African Americans > 60 (> 60)
[2020-11-13] MEDS: Spironolactone 25 MG TABLET PO SCH (07:46)
[2020-11-13] MEDS: hydrALAZINE 25 MG TABLET PO SCH ×3 (07:46→20:32)
[2020-11-13] MEDS: Metoprolol XL (24 HR) Succ 50 MG TAB.ER.24H PO SCH (07:46)
[2020-11-13] MEDS: Furosemide 40 MG/4 ML VIAL IVP SCH (07:46)
[2020-11-13] MEDS: predniSONE 20 MG TABLET PO SCH (07:47)
[2020-11-13] MEDS: Aspirin 81 MG TAB.CHEW PO SCH (07:47)
[2020-11-13] MEDS: Pregabalin 75 MG CAPSULE PO SCH ×2 (07:47→20:32)
[2020-11-13] MEDS: Isosorbide MONOnitrate (24 HR) 60 MG TAB.ER.24H PO SCH (07:47)
[2020-11-13] MEDS: Insulin LISPRO 300 UNITS/3 ML VIAL SUBQ SCH ×4 (07:47→20:35)
[2020-11-13] MEDS ORDERED: Heparin 1,000 UNITS/500 mL 0 ML ONE (12:52)
[2020-11-13] MEDS ORDERED: ISOVUE-370 200 ML INFUS..BTL ONE (12:52)
[2020-11-13] MEDS ORDERED: Nitroglycerin 1,000 MCG/10 ML VIAL IV ONE (12:52)
[2020-11-13] MEDS ORDERED: *HR* Heparin 10,000 UNIT/10 ML VIAL ONE (12:52)
[2020-11-13] MEDS ORDERED: Nitroglycerin 0.4 MG TAB.SUBL SL PRN (13:14)
[2020-11-13] MEDS ORDERED: Isovue-370 500 ML BOTTLE IVP ONE (13:14)
[2020-11-13] MEDS ORDERED: *HR* Metoprolol 5 MG/5 ML VIAL IVP PRN (13:14)
[2020-11-13] MEDS: Heparin 25,000UNIT/250ML 1/2NS 25,000 UNIT/250 ML IV.SOLN IVC SCH (16:29)
[2020-11-13] MEDS ORDERED: Insulin Human Regular 10 UNIT in 0.9 % Sodium Chloride 10 ML IV ONE (17:44)
[2020-11-13] MEDS ORDERED: predniSONE 20 MG TABLET PO ONE (19:00)
[2020-11-13] MEDS: lisinopriL 20 MG TABLET PO SCH (20:31)
[2020-11-13] MEDS ORDERED: Metoprolol XL (24 HR) Succ 50 MG TAB.ER.24H PO ONE (21:00)
[2020-11-14] MEDS ORDERED: predniSONE 20 MG TABLET PO ONE ×2 (01:00→07:00)
[2020-11-14 03:42] LABS: Hematocrit 30.1 % (37.5-50.1); Hemoglobin 9.1 g/dL (12.9-16.9); Mean Corpuscular HGB Conc 30.2 g/dL (31.6-35.5); Mean Corpuscular Hemoglobin 26.1 pg (28.0-33.3); Mean Corpuscular Volume 86.5 fL (83.0-100.0); Mean Platelet Volume 12.5 fL (9.4-12.4); Platelet Count 157 K/mcL (140-400); Red Blood Count 3.48 M/mcL (4.19-5.50); Red Cell Distribution Width 16.6 % (11.5-14.5)
[2020-11-14 03:43] LABS: White Blood Count 7.9 K/mcL (4.3-11.1)
[2020-11-14 03:51] LABS: BUN/Creatinine Ratio 41 (6-26); Blood Urea Nitrogen 38 mg/dL (8-23); Calcium 8.6 mg/dL (8.6-10.3); Carbon Dioxide 25 mEq/L (23-29); Chloride 103 mEq/L (98-107); Glucose 355 mg/dL (70-105); Osmolality,Calculated 305 (280-300); Potassium 4.5 mEq/L (3.5-5.1); Sodium 136 mEq/L (136-145); eGFR For African Americans > 60 (> 60); eGFR For Non-African Americans > 60 (> 60)
[2020-11-14] MEDS ORDERED: *HR* Metoprolol 5 MG/5 ML VIAL IVP PRN (07:00)
[2020-11-14] MEDS ORDERED: Nitroglycerin 0.4 MG TAB.SUBL SL PRN (07:00)
[2020-11-14] MEDS ORDERED: Isovue-370 500 ML BOTTLE IVP ONE (07:00)
[2020-11-14] MEDS: Insulin LISPRO 300 UNITS/3 ML VIAL SUBQ SCH ×4 (07:50→20:44)
[2020-11-14] MEDS: hydrALAZINE 25 MG TABLET PO SCH ×3 (08:06→20:41)
[2020-11-14] MEDS: Aspirin 81 MG TAB.CHEW PO SCH (08:06)
[2020-11-14] MEDS: Isosorbide MONOnitrate (24 HR) 60 MG TAB.ER.24H PO SCH (08:06)
[2020-11-14] MEDS: Spironolactone 25 MG TABLET PO SCH (08:07)
[2020-11-14] MEDS: Pregabalin 75 MG CAPSULE PO SCH ×2 (08:07→20:41)
[2020-11-14] MEDS: Metoprolol XL (24 HR) Succ 50 MG TAB.ER.24H PO SCH ×2 (08:26→20:41)
[2020-11-14] MEDS ORDERED: *HR* Metoprolol 5 MG/5 ML VIAL IVP ONE (10:11)
[2020-11-14] MEDS: Heparin 25,000UNIT/250ML 1/2NS 25,000 UNIT/250 ML IV.SOLN IVC SCH (16:23)
[2020-11-14] MEDS: Apixaban 5 MG TABLET PO SCH (20:41)
[2020-11-14] MEDS: lisinopriL 20 MG TABLET PO SCH (20:42)
[2020-11-15] MEDS: Insulin LISPRO 300 UNITS/3 ML VIAL SUBQ SCH ×2 (07:32→12:00)
[2020-11-15] MEDS: Spironolactone 25 MG TABLET PO SCH (07:46)
[2020-11-15] MEDS: Metoprolol XL (24 HR) Succ 50 MG TAB.ER.24H PO SCH (07:46)
[2020-11-15] MEDS: hydrALAZINE 25 MG TABLET PO SCH (07:46)
[2020-11-15] MEDS: Pregabalin 75 MG CAPSULE PO SCH (07:46)
[2020-11-15] MEDS: Apixaban 5 MG TABLET PO SCH (07:46)
[2020-11-15] MEDS: Isosorbide MONOnitrate (24 HR) 60 MG TAB.ER.24H PO SCH (07:46)
[2020-11-15] MEDS: Aspirin 81 MG TAB.CHEW PO SCH (07:46)
[2020-11-15] MEDS ORDERED: Furosemide 20 MG TABLET PO SCH (09:00)
[2020-11-15 12:44] VITALS: BP 113/58
== END 2020-11-15 14:30 | disposition home or self-care (01) | DRG 287 ==
LOC: 2ANU 19:52 → EMEROOARM 19:52 → SUATTDRO 23:31 → 2ANU 23:50
PROVIDERS: ADMIT Student in an Organized Health Care Education/Training Program; ATTEND Internal Medicine

== ENCOUNTER 2022-04-06 17:53 | Inpatient (IN) ==
[2022-04-06 18:18] LABS: Basophils % 0.7 %; Eosinophils # 0.2 K/mcL (0.0-0.6); Eosinophils % 3.2 %; Hematocrit 33.6 % (37.5-50.1); Immature Granulocytes % 0.3 % (0-4); Lymphocytes # 1.5 K/mcL (0.6-4.6); Lymphocytes % 24.8 %; Mean Corpuscular HGB Conc 32.7 g/dL (31.6-35.5); Mean Corpuscular Hemoglobin 29.8 pg (28.0-33.3); Mean Corpuscular Volume 91.1 fL (83.0-100.0); Mean Platelet Volume 12.8 fL (9.4-12.4); Monocytes # 0.5 K/mcL (0.0-1.3); Monocytes % 8.2 %; Neutrophils # 3.7 K/mcL (1.6-8.9); Platelet Count 129 K/mcL (140-400); Red Blood Count 3.69 M/mcL (4.19-5.50); Red Cell Distribution Width 15.5 % (11.5-14.5); Segmented Neutrophils % 62.8 %; White Blood Count 5.9 K/mcL (4.3-11.1)
[2022-04-06 18:43] LABS: BUN/Creatinine Ratio 15 (6-26); Blood Urea Nitrogen 16 mg/dL (8-23); Calcium 9.1 mg/dL (8.6-10.3); Carbon Dioxide 22 mEq/L (23-29); Chloride 109 mEq/L (98-107); Glucose 85 mg/dL (70-105); Osmolality,Calculated 294 (280-300); Sodium 142 mEq/L (136-145); eGFR For African Americans > 60 (> 60); eGFR For Non-African Americans > 60 (> 60)
[2022-04-06 18:44] LABS: Troponin I < 0.03 ng/mL (< 0.04)
[2022-04-06] MEDS ORDERED: Melatonin 3 MG TABLET PO PRN (20:24)
[2022-04-06] MEDS ORDERED: Ondansetron 4 MG/2 ML VIAL IVP PRN (20:24)
[2022-04-06] MEDS ORDERED: Naloxone 0.4 MG/ML INJ IVP PRN (20:24)
[2022-04-06] MEDS ORDERED: Acetaminophen 325 MG TABLET PO PRN (20:24)
[2022-04-06] MEDS ORDERED: Furosemide 40 MG/4 ML VIAL IVP ONE (20:27)
[2022-04-06] MEDS ORDERED: Perflutren Lipid Microsphere 1.3 ML in 0.9 % Sodium Chloride 8.7 ML IVP PRN (20:49)
[2022-04-06] MEDS: Metoprolol XL (24 HR) Succ 50 MG TAB.ER.24H PO SCH (21:49)
[2022-04-06] MEDS ORDERED: D5% in Water 1,000 ML IVC PRN (22:25)
[2022-04-06] MEDS ORDERED: *HR* Dextrose 50 % in Water (Syg) 50 ML SYRINGE IVP PRN (22:25)
[2022-04-06] MEDS ORDERED: Dextrose Gel 15 GM/37.5 ML TUBE PO PRN ×2 (22:25)
[2022-04-07 07:41] LABS: Basophils % 1.2 %; Eosinophils % 5.1 %; Immature Granulocytes % 0.2 % (0-4)
[2022-04-07 07:43] LABS: Basophils # 0.1 K/mcL (0.0-0.2); Eosinophils # 0.3 K/mcL (0.0-0.6); Hematocrit 34.5 % (37.5-50.1); Hemoglobin 11.2 g/dL (12.9-16.9); Immature Platelets 12.8 % (1.1-6.1); Lymphocytes # 1.7 K/mcL (0.6-4.6); Lymphocytes % 29.9 %; Mean Corpuscular HGB Conc 32.5 g/dL (31.6-35.5); Mean Corpuscular Hemoglobin 29.6 pg (28.0-33.3); Mean Platelet Volume 13.1 fL (9.4-12.4); Monocytes # 0.6 K/mcL (0.0-1.3); Monocytes % 9.7 %; Neutrophils # 3.1 K/mcL (1.6-8.9); Platelet Count 132 K/mcL (140-400); Red Blood Count 3.79 M/mcL (4.19-5.50); Red Cell Distribution Width 15.4 % (11.5-14.5); Segmented Neutrophils % 53.9 %; White Blood Count 5.7 K/mcL (4.3-11.1)
[2022-04-07 07:59] LABS: INR 1.2; Prothrombin Time 13.8 Seconds (9.4-12.1)
[2022-04-07 08:04] LABS: BUN/Creatinine Ratio 17 (6-26); Blood Urea Nitrogen 20 mg/dL (8-23); Calcium 9.3 mg/dL (8.6-10.3); Carbon Dioxide 27 mEq/L (23-29); Chloride 107 mEq/L (98-107); Glucose 95 mg/dL (70-105); Magnesium 1.8 mg/dL (1.6-2.6); Osmolality,Calculated 296 (280-300); Potassium 3.9 mEq/L (3.5-5.1); Sodium 142 mEq/L (136-145); eGFR For African Americans > 60 (> 60); eGFR For Non-African Americans 60 (> 60)
[2022-04-07] MEDS: Aspirin Enteric Coated 81 MG Tablet PO SCH (08:50)
[2022-04-07] MEDS: Furosemide 40 MG/4 ML VIAL IVP SCH ×2 (08:51→16:50)
[2022-04-07] MEDS: Metoprolol XL (24 HR) Succ 50 MG TAB.ER.24H PO SCH ×2 (08:51→21:17)
[2022-04-07] MEDS: Insulin LISPRO 300 UNITS/3 ML VIAL SUBQ SCH ×5 (08:51→21:18)
[2022-04-07] MEDS ORDERED: Apixaban 5 MG TABLET PO SCH (09:00)
[2022-04-07] MEDS: Budesonide/Formoterol 80/4.5 1 PUFF INH IH SCH (20:17)
[2022-04-07] MEDS: Pregabalin 75 MG CAPSULE PO SCH (21:17)
[2022-04-07] MEDS: Apixaban 2.5 MG TABLET PO SCH (21:17)
[2022-04-07] MEDS: Sacubitril/Valsartan 49/51 MG 1 TABLET PO SCH (21:18)
[2022-04-07] MEDS: Latanoprost 2.5 ML BOTTLE BOTH EYES SCH (23:31)
[2022-04-08 02:37] LABS: Basophils # 0.1 K/mcL (0.0-0.2); Basophils % 0.9 %; Eosinophils # 0.2 K/mcL (0.0-0.6); Eosinophils % 3.1 %; Hematocrit 35.7 % (37.5-50.1); Hemoglobin 11.7 g/dL (12.9-16.9); Immature Granulocytes % 0.1 % (0-4); Lymphocytes # 1.7 K/mcL (0.6-4.6); Lymphocytes % 25.5 %; Mean Corpuscular HGB Conc 32.8 g/dL (31.6-35.5); Mean Corpuscular Hemoglobin 29.3 pg (28.0-33.3); Mean Corpuscular Volume 89.5 fL (83.0-100.0); Monocytes # 0.6 K/mcL (0.0-1.3); Monocytes % 9.1 %; Neutrophils # 4.1 K/mcL (1.6-8.9); Platelet Count 142 K/mcL (140-400); Red Blood Count 3.99 M/mcL (4.19-5.50); Red Cell Distribution Width 15.2 % (11.5-14.5); Segmented Neutrophils % 61.3 %; White Blood Count 6.7 K/mcL (4.3-11.1)
[2022-04-08 02:47] LABS: BUN/Creatinine Ratio 18 (6-26); Blood Urea Nitrogen 22 mg/dL (8-23); Calcium 9.6 mg/dL (8.6-10.3); Carbon Dioxide 27 mEq/L (23-29); Chloride 102 mEq/L (98-107); Glucose 108 mg/dL (70-105); Magnesium 1.7 mg/dL (1.6-2.6); Osmolality,Calculated 294 (280-300); Potassium 3.4 mEq/L (3.5-5.1); Sodium 140 mEq/L (136-145); eGFR For African Americans > 60 (> 60); eGFR For Non-African Americans 58 (> 60)
[2022-04-08] MEDS: Insulin LISPRO 300 UNITS/3 ML VIAL SUBQ SCH ×4 (07:17→20:27)
[2022-04-08] MEDS: Sacubitril/Valsartan 49/51 MG 1 TABLET PO SCH ×2 (07:57→20:26)
[2022-04-08] MEDS: Isosorbide MONOnitrate (24 HR) 60 MG TAB.ER.24H PO SCH (07:57)
[2022-04-08] MEDS: Spironolactone 12.5 MG TABLET PO SCH (07:57)
[2022-04-08] MEDS: Pregabalin 75 MG CAPSULE PO SCH ×2 (07:57→20:27)
[2022-04-08] MEDS: Apixaban 2.5 MG TABLET PO SCH ×2 (07:57→20:27)
[2022-04-08] MEDS: Cholecalciferol (D-3) 1,000 UNIT (25MCG) TABLET PO SCH (07:57)
[2022-04-08] MEDS: Metoprolol XL (24 HR) Succ 50 MG TAB.ER.24H PO SCH ×2 (07:57→20:26)
[2022-04-08] MEDS: Aspirin Enteric Coated 81 MG Tablet PO SCH (07:57)
[2022-04-08] MEDS: Furosemide 40 MG/4 ML VIAL IVP SCH ×2 (07:57→17:15)
[2022-04-08] MEDS: Budesonide/Formoterol 80/4.5 1 PUFF INH IH SCH ×2 (10:31→19:46)
[2022-04-08] MEDS: Latanoprost 2.5 ML BOTTLE BOTH EYES SCH (20:27)
[2022-04-09 06:34] LABS: BUN/Creatinine Ratio 21 (6-26); Blood Urea Nitrogen 28 mg/dL (8-23); Calcium 8.8 mg/dL (8.6-10.3); Carbon Dioxide 24 mEq/L (23-29); Chloride 105 mEq/L (98-107); Glucose 155 mg/dL (70-105); Osmolality,Calculated 297 (280-300); Potassium 3.6 mEq/L (3.5-5.1); Sodium 139 mEq/L (136-145); eGFR For African Americans > 60 (> 60); eGFR For Non-African Americans 51 (> 60)
[2022-04-09 07:36] VITALS: TEMP 98
[2022-04-09] MEDS: Insulin LISPRO 300 UNITS/3 ML VIAL SUBQ SCH ×2 (07:47→11:32)
[2022-04-09] MEDS: Apixaban 2.5 MG TABLET PO SCH (08:56)
[2022-04-09] MEDS: Furosemide 40 MG/4 ML VIAL IVP SCH (08:56)
[2022-04-09] MEDS: Spironolactone 12.5 MG TABLET PO SCH (08:57)
[2022-04-09] MEDS: Metoprolol XL (24 HR) Succ 50 MG TAB.ER.24H PO SCH (08:57)
[2022-04-09] MEDS: Isosorbide MONOnitrate (24 HR) 60 MG TAB.ER.24H PO SCH (08:57)
[2022-04-09] MEDS: Pregabalin 75 MG CAPSULE PO SCH (08:57)
[2022-04-09] MEDS: Aspirin Enteric Coated 81 MG Tablet PO SCH (08:57)
[2022-04-09] MEDS: Cholecalciferol (D-3) 1,000 UNIT (25MCG) TABLET PO SCH (08:57)
[2022-04-09] MEDS: Sacubitril/Valsartan 49/51 MG 1 TABLET PO SCH (09:05)
[2022-04-09] MEDS: Budesonide/Formoterol 80/4.5 1 PUFF INH IH SCH (09:21)
[2022-04-09 11:30] VITALS: BP 104/65; PULSE 71; O2SAT 96
== END 2022-04-09 16:02 | disposition home or self-care (01) | DRG 291 ==
LOC: 2ANU 17:53 → EMEROOARM 17:53 → 2ANU 21:16 → SUATTDRO 04-07 14:26
PROVIDERS: ADMIT Internal Medicine; ATTEND Family Medicine